=== PATIENT | male | born 1940 | race Caucasian/White ===

== ENCOUNTER 2017-01-30 16:05 | Emergency (ER) | payer OTHER ==
--- NOTE | 2017-01-30 17:22 | EDM.PDOC ---
<Sander Helton - Last Filed: 01/30/17 17:50> ED HPI GENERAL MEDICAL PROBLEM - General Chief Complaint: General Stated Complaint: MEDICAL VIA [facility] Time Seen by Provider: 01/30/17 17:05 Source of Information: Reports: Family History Limitations: Reports: Altered mental status - History of Present Illness INITIAL COMMENTS - FREE TEXT/NARRATIVE: 76-year-old male has renal failure who finished his dialysis run today but came to the emergency room by ambulance because of profound fatigue and weakness. It has been getting progressively worse over the past several days. His last dialysis run only lasted one hour but today he had a full run. This morning his daughter almost called the ambulance prior to his dialysis because he was so weak and wasn't walking well. He has not had fevers or chills. No nausea or vomiting. They're concerned he is having a stroke. Onset: unknown/unsure (Over the past several days he's become more weak) Severity: moderate Associated Symptoms: Reports: fever/chills, malaise, shortness of breath, weakness. Denies: nausea/vomiting Denies Pain Score (Numeric/FACES): 0 - Related Data Allergies Allergy/AdvReac Type Severity Reaction Status Date / Time venom-honey bee Allergy Cannot Verified 01/30/17 16:38 [bee venom (honey bee)] Remember fish Allergy Cannot Uncoded 01/30/17 16:38 Remember Home Meds: Home Meds Aspirin [Halfprin] 81 mg PO DAILY 03/02/15 [History] Sertraline [Zoloft] 50 mg PO DAILY 03/02/15 [History] amLODIPine [Norvasc] 2.5 mg PO DAILY 03/02/15 [History] rOPINIRole [Requip] 2 mg PO BEDTIME 03/02/15 [History] traZODone 25 mg PO BEDTIME 03/02/15 [History] Acetaminophen with Codeine [Tylenol with Codeine #3 Tablet] 1 tab PO ASDIRECTED PRN 03/23/16 [History] Carvedilol 6.25 mg PO BID 03/23/16 [History] Folic Acid/Vitamin B Comp W-C [Dialyvite] 1 each PO DAILY 03/23/16 [History] Ketotifen [Ketotifen 0.025% Ophth Soln] 1 drop TOP BID 03/23/16 [History] Loratadine [Claritin] 10 mg PO DAILY 03/23/16 [History] Omeprazole 20 mg PO DAILY 03/23/16 [History] Sennosides [Senna Laxative] 50 mg PO BID 03/23/16 [History] Sevelamer Carbonate [Renvela] 800 mg PO TID 03/23/16 [History] Past Medical History HEENT History: Reports: Cataract, Hard of hearing, Impaired vision Cardiovascular History: Reports: Hypertension Respiratory History: Reports: Sleep apnea Other Respiratory History: not been tested yet Gastrointestinal History: Reports: Chronic constipation Genitourinary History: Reports: Dialysis, Other (see below) Other Genitourinary History: dailysis for past 7 years 3 times a week Musculoskeletal History: Reports: Back pain, chronic Other Musculoskeletal History: back [id number] Neurological History: Reports: CVA Psychiatric History: Reports: Depression Endocrine/Metabolic History: Reports: Diabetes, type II - Past Surgical History HEENT Surgical History: Reports: Cataract surgery Neurological Surgical History: Reports: Lumbar spine Social & Family History - Tobacco Use Smoking Status *Q: Never Smoker Second Hand Smoke Exposure: No - Caffeine Use Caffeine Use: Reports: Coffee, Soda - Recreational Drug Use Recreational Drug Use: No ED ROS GENERAL - Review of Systems Review Of Systems: See Below Constitutional: Reports: fever, malaise, weakness HEENT: Reports: No symptoms Respiratory: Reports: Shortness of Breath Cardiovascular: Denies: Chest pain, Palpitations Endocrine: Reports: fatigue GI/Abdominal: Denies: Abdominal pain, Nausea, Vomiting Skin: Reports: pallor, diaphoresis ED EXAM, GENERAL - Physical Exam Exam: See Below Exam Limited By: Altered mental status (Patient is very tired, answers questions slowly and tends to fall asleep) Respiratory/Chest: no respiratory distress, decreased breath sounds (Decreased breath sounds and rales at the bases bilaterally) Cardiovascular: irregularly irregular. No: tachycardia GI/Abdominal: soft, other (Morbidly obese) Neurological: inattentive, slow to respond Psychiatric: depressed mood, flat affect Skin Exam: Diaphoretic (Slight diaphoresis) EKG INTERPRETATION QRS: LBBB Course - Vital Signs Last Recorded V/S: Last Vital Signs Temp 101.7 F H 01/30/17 19:21 Pulse 72 01/30/17 19:43 Resp 20 01/30/17 19:43 BP 93/54 L 01/30/17 19:43 Pulse Ox 95 01/30/17 19:43 - Orders/Labs/Meds Orders: Active Orders 24 hr Category Date Time Status Bladder Scan [RC] ONETIME Care 01/30/17 19:29 Active Peripheral IV Care [RC] . DIRECTED Care 01/30/17 19:24 Active Chest 1V Frontal [CR] Stat Exams 01/30/17 19:12 Taken Head wo Cont [CT] Stat Exams 01/30/17 17:18 Ordered CULTURE BLOOD [BC] Urgent Lab 01/30/17 19:44 Ordered CULTURE BLOOD [BC] Urgent Lab 01/30/17 19:44 Ordered Piperacillin/Tazobactam [Zosyn] 3.375 gm Med 01/30/17 19:45 Ordered Sodium Chloride 0.9% [Normal Saline] 50 ml IV Q6H Sodium Chloride 0.9% [Saline Flush] Med 01/30/17 19:24 Active 10 ml FLUSH ASDIRECTED PRN Blood Culture x2 Reflex Set [OM.PC] Urgent Oth 01/30/17 19:44 Ordered Peripheral IV Insertion Adult [OM.PC] Urgent Oth 01/30/17 19:24 Ordered Medication Orders Piperacillin Sod/Tazobactam (Sod 3.375 gm/ Sodium Chloride) 50 mls @ 100 mls/ hr IV Q6H JETHRO Sodium Chloride (Saline Flush) 10 ml FLUSH ASDIRECTED PRN PRN Reason: Keep Vein Open Last Admin: 01/30/17 19:37 Dose: 10 ml Labs: Laboratory Tests 01/30/17 01/30/17 01/30/17 Range/Units 17:18 17:30 17:30 WBC 12.4 H (4.5-11.0) K/uL RBC 4.18 L (4.30-5.90) M/uL Hgb 13.1 (12.0-15.0) g/dL Hct 39.3 L (40.0-54.0) % MCV 94 (80-98) fL MCH 31 (27-31) pg MCHC 33 (32-36) % Plt Count 135 L (150-400) K/uL Neut % (Auto) 88 H (36-66) % Lymph % (Auto) 3 L (24-44) % Yell % (Auto) 8 H (2-6) % Eos % (Auto) 0 L (2-4) % Baso % (Auto) 0 (0-1) % Puncture Site Lt.radial ABG pH 7.487 H (7.350-7.450) ABG pCO2 35.8 (35.0-42.0) mmHg ABG pO2 50.3 L (75.0-100.0) mmHg ABG HCO3 26.8 H (22.0-26.0) mmol/L ABG Total CO2 23.6 (23.0-27.0) mmol/L ABG O2 Saturation 84.9 L (95.0-98.0) % ABG O2 Content 15.5 (15.0-23.0) %vol ABG Base Excess 3.9 mm/L ABG Hemoglobin 13.1 L (13.5-18.0) g/dL ABG Oxyhemoglobin 84.3 % ABG Carboxyhemoglobin 0.2 (0.0-1.6) % ABG Methemoglobin 0.5 % Jose Daniel Test Passed O2 Delivery Device Room air Sodium 139 L (140-148) mmol/L Potassium 4.3 (3.6-5.2) mmol/L Chloride 98 L (100-108) mmol/L Carbon Dioxide 30 (21-32) mmol/L Anion Gap 15.3 H (5.0-14.0) mmol/L BUN 35 H (7-18) mg/dL Creatinine 7.9 H* (0.8-1.3) mg/dL Est Cr Clr Drug Dosing 7.70 mL/min Estimated GFR (MDRD) 7 L (>60) Glucose 150 H (74-106) mg/dL Lactic Acid (0.4-2.0) mmol/L Calcium 8.4 L (8.5-10.1) mg/dL Total Bilirubin 1.1 H D (0.2-1.0) mg/dL AST 23 (15-37) U/L ALT 23 (12-78) U/L Alkaline Phosphatase 131 H (46-116) U/L Total Protein 7.6 (6.4-8.2) g/dL Albumin 3.9 (3.4-5.0) g/dL Globulin 3.7 H (2.3-3.5) g/dL Albumin/Globulin Ratio 1.1 L (1.2-2.2) /05/11 Range/Units 18:36 WBC (4.5-11.0) K/uL RBC (4.30-5.90) M/uL Hgb (12.0-15.0) g/dL Hct (40.0-54.0) % MCV (80-98) fL MCH (27-31) pg MCHC (32-36) % Plt Count (150-400) K/uL Neut % (Auto) (36-66) % Lymph % (Auto) (24-44) % Yell % (Auto) (2-6) % Eos % (Auto) (2-4) % Baso % (Auto) (0-1) % Puncture Site ABG pH (7.350-7.450) ABG pCO2 (35.0-42.0) mmHg ABG pO2 (75.0-100.0) mmHg ABG HCO3 (22.0-26.0) mmol/L ABG Total CO2 (23.0-27.0) mmol/L ABG O2 Saturation (95.0-98.0) % ABG O2 Content (15.0-23.0) %vol ABG Base Excess mm/L ABG Hemoglobin (13.5-18.0) g/dL ABG Oxyhemoglobin % ABG Carboxyhemoglobin (0.0-1.6) % ABG Methemoglobin % Jose Daniel Test O2 Delivery Device Sodium (140-148) mmol/L Potassium (3.6-5.2) mmol/L Chloride (100-108) mmol/L Carbon Dioxide (21-32) mmol/L Anion Gap (5.0-14.0) mmol/L BUN (7-18) mg/dL Creatinine (0.8-1.3) mg/dL Est Cr Clr Drug Dosing mL/min Estimated GFR (MDRD) (>60) Glucose (74-106) mg/dL Lactic Acid 1.6 (0.4-2.0) mmol/L Calcium (8.5-10.1) mg/dL Total Bilirubin (0.2-1.0) mg/dL AST (15-37) U/L ALT (12-78) U/L Alkaline Phosphatase (46-116) U/L Total Protein (6.4-8.2) g/dL Albumin (3.4-5.0) g/dL Globulin (2.3-3.5) g/dL Albumin/Globulin Ratio (1.2-2.2) Meds: Medications Generic Name Dose Route Start Last Admin Trade Name Freq PRN Reason Stop Dose Admin Piperacillin Sod/Tazobactam 50 mls @ 100 mls/hr 01/30/17 19:45 Sod 3.375 gm/ Sodium Chloride IV Q6H JETHRO Sodium Chloride 10 ml 01/30/17 19:24 01/30/17 19:37 Saline Flush FLUSH 10 ml ASDIRECTED PRN Administration Keep Vein Open Discontinued Medications Generic Name Dose Route Start Last Admin Trade Name Freq PRN Reason Stop Dose Admin Acetaminophen 650 mg 01/30/17 19:02 01/30/17 19:17 Tylenol PO 01/30/17 19:03 650 mg NOW ONE Administration - Re-Assessments/Exams Free Text/Narrative Re-Assessment/Exam: 01/30/17 17:43 02 saturations are consistently 89-91% on room air. Patient does not have an increased respiratory rate but looks lethargic and responds slowly to questions. His family is worried however he himself has no complaints. 01/30/17 17:44 ABGs, CMP, CBC and head CT were obtained. 01/30/17 17:50 ABGs returned showing no hypercapnia. Head CT was pending as well as the rest of his labs. Care was turned to Dr. Vickers prior to transfer to the [place]. Departure - Departure Disposition: DC/Tfer to [facility] 02 Clinical Impression: Renal failure Qualifiers: Renal failure chronicity: acute on chronic Acute renal failure type: unspecified Chronic kidney disease stage: on chronic dialysis Qualified Code(s) : N17.9 - Acute kidney failure, unspecified; N18.9 - Chronic kidney disease, unspecified; Z99.2 - Dependence on renal dialysis Forms: ED Department Discharge - My Orders Last 24 Hours: My Active Orders 01/30/17 19:12 Chest 1V Frontal [CR] Stat 01/30/17 19:24 Peripheral IV Care [RC] . DIRECTED Sodium Chloride 0.9% [Saline Flush] 10 ml FLUSH ASDIRECTED PRN Peripheral IV Insertion Adult [OM.PC] Urgent 01/30/17 19:29 Bladder Scan [RC] ONETIME 01/30/17 19:44 CULTURE BLOOD [BC] Urgent CULTURE BLOOD [BC] Urgent Blood Culture x2 Reflex Set [OM.PC] Urgent 01/30/17 19:45 Piperacillin/Tazobactam [Zosyn] 3.375 gm Sodium Chloride 0.9% [Normal Saline] 50 ml IV Q6H - Assessment/Plan Last 24 Hours: My Active Orders 01/30/17 19:12 Chest 1V Frontal [CR] Stat 01/30/17 19:24 Peripheral IV Care [RC] . DIRECTED Sodium Chloride 0.9% [Saline Flush] 10 ml FLUSH ASDIRECTED PRN Peripheral IV Insertion Adult [OM.PC] Urgent 01/30/17 19:29 Bladder Scan [RC] ONETIME 01/30/17 19:44 CULTURE BLOOD [BC] Urgent CULTURE BLOOD [BC] Urgent Blood Culture x2 Reflex Set [OM.PC] Urgent 01/30/17 19:45 Piperacillin/Tazobactam [Zosyn] 3.375 gm Sodium Chloride 0.9% [Normal Saline] 50 ml IV Q6H <[email or web address] - Last Filed: 01/30/17 19:51> Course - Re-Assessments/Exams Free Text/Narrative Re-Assessment/Exam: Cardiovascular deficits regular rate and rhythm S1-S2, breath sounds are distant on appreciate any adventitious noises ears tympanic membranes clear and hair, I did review lab work and CT scan results with family CT scan concerning for left mastoiditis otherwise no acute intracranial process 01/30/17 19:26 Departure - Departure Time of Disposition: 19:51 (A) Condition: poor - Assessment/Plan Plan: Assessment Acuity = acute Site and laterality = fever unknown etiology complicated patient with end-stage renal disease on dialysis as well as diabetes mellitus type 2 and hypertension Etiology = unclear etiology Manifestations = none Location of injury = home Lab values = WBC elevated at 12.4 consistent leukocytosis platelets low at 135 consistent thrombocytopenia pH 7.48 PCO2 35.8 PO2 50.3 and bicarbonate 26.8 creatinine elevated at 7.9 consistent end-stage renal disease G5 D. lactic acid normal at 1.6 chest x-ray I did review films myself I cannot appreciate any acute process, the official read from radiology is pending, influenza AMB negative Plan [facility] spoke with Dr. Ham unfortunately the [place] had no beds for [place], I next called a [facility] spoke with Dr. Clemente hospitalist nurse consultant kindly accepted the patient. Will be transported via EMS ground blood cultures have been drawn and are pending will be started on Zosyn prior to transport Patient was in agreement with the plan all questions were answered, This note was dictated using myLINGO voice recognition software please call with any questions.
[2017-01-30] MEDS ORDERED: Acetaminophen 325 MG Tab PO ONE (19:02)
[2017-01-30] MEDS ORDERED: Sodium Chloride 0.9% 10 ML Syringe FLUSH PRN (19:24)
[2017-01-30] MEDS ORDERED: Piperacillin/Tazobactam 3.375 GM in Sodium Chloride 0.9% 50 ML IV SCH (19:45)
[2017-01-30 20:46] VITALS: BP 98/49
--- NOTE | 2017-01-31 09:11 | CR ---
Chest 1V Frontal FINDINGS: There is mild cardiac enlargement. The vascular structures are normal limits. No infiltrat es or effusions are demonstrated. The skeletal structures are unremarkable. IMPRESSION: 1. No acute findings.
== END 2017-01-30 20:50 ==
LOC: JP.ED 16:05
DX: N18.9 Chronic kidney disease, unspecified (principal); H54.7 Unspecified visual loss; E11.9 Type 2 diabetes mellitus without complications; Z99.2 Dependence on renal dialysis; Z79.82 Long term (current) use of aspirin; Z79.899 Other long term (current) drug therapy
CPT/HCPCS: 36415; 36600; 70450; 71010; 80053; 82803; 83605; 85025; 87040; 87804; 96365; 99285; A9270; J2543; J7050; 87077; 87186